=== PATIENT | male | born 1975 | race Two or more races ===

== ENCOUNTER 2024-05-24 00:06 | Emergency (ER) | payer OTHER ==
[~2024-05-24] VITALS: Ht 172.7 cm; Wt 80.7 kg
--- NOTE | 2024-05-24 01:44 | NUR ---
BIBS C/O RIGHT SHOULDER/ARM PAIN AND LEFT ANKLE PAIN S/P 4FT FALL OFF FENCE -HT -KO -BLOODTHINNERS
[2024-05-24] MEDS ORDERED: HYDROCODONE/APAP 5/325MG TABLET ONE (02:19)
[2024-05-24] MEDS: HYDROCODONE/APAP 5/325MG TABLET PO ONE (02:22)
--- NOTE | 2024-05-24 03:00 | NUR ---
SHARED SERVICES MANAGER AT BEDSIDE
--- NOTE | 2024-05-24 04:45 | NUR ---
EMT, RICARDO AT BED SIDE TO APPLY SPLINT
--- NOTE | 2024-05-24 05:31 | NUR ---
Patient discharged to home in stable condition. Written and verbal after care instructions given. Patient verbalizes understanding of instruction.
[2024-05-24 05:32] VITALS: BP 138/86; TEMP 98.1; O2SAT 100
--- NOTE | 2024-05-24 08:40 | NUR ---
RECEIVED CALL FROM RADIOLOGY FOR PT TO NOTIFY DR REY LOPEZ NOTIFIED
== END 2024-05-24 05:32 | disposition home or self-care (01) ==
LOC: ER 00:09
DX: S82.65XA Nondisplaced fracture of lateral malleolus of left fibula, initial encounter for closed fracture (principal); S62.292A Other fracture of first metacarpal bone, left hand, initial encounter for closed fracture; S43.101A Unspecified dislocation of right acromioclavicular joint, initial encounter; Z60.2 Problems related to living alone; W17.89XA Other fall from one level to another, initial encounter; Y93.89 Activity, other specified; Y92.096 Garden or yard of other non-institutional residence as the place of occurrence of the external cause; Y99.8 Other external cause status
CPT/HCPCS: 73060-TC; 73130-TC; 73610-TC; 73630-TC